=== PATIENT | male | born 1970 | race Caucasian/White ===

== ENCOUNTER 2021-05-30 16:14 | Inpatient (IN) | payer MEDICAID, OTHER ==
[~2021-05-30] VITALS: Ht 167.6 cm; Wt 77.5 kg
[2021-05-30] MEDS ORDERED: IBUP-2070 PO (18:36)
[2021-05-30] MEDS ORDERED: BUPR75 PO (18:36)
[2021-05-30] MEDS ORDERED: SUCR1TAB28 PO (18:37)
[2021-05-30] MEDS ORDERED: NAPR-1025 PO (18:37)
[2021-05-30] MEDS ORDERED: NYST100033 PO (18:37)
[2021-05-30] MEDS ORDERED: BACL10TA PO (18:37)
[2021-05-30] MEDS ORDERED: HYD50 PO (18:37)
[2021-05-30] MEDS ORDERED: LIB25 PO (18:37)
[2021-05-30] MEDS ORDERED: OLAN10TA74 PO (18:37)
[2021-05-30] MEDS ORDERED: FAMO20 PO (18:37)
[2021-05-30 19:30] LABS: BASOPHILS % (AUTO) 0.5 % (0.0-2.0); EOSINOPHILS % (AUTO) 0.6 % (1.0-6.0); HEMATOCRIT 35.2 % (41-53); HEMOGLOBIN 12.3 g/dL (13.5-17.5); LYMPHOCYTES # (AUTO) 0.8 K/uL (1.0-4.8); LYMPHOCYTES % (AUTO) 12.9 % (22.0-44.0); MEAN CORPUSCULAR HEMOGLOBIN 36.1 pg (26.0-34.0); MEAN CORPUSCULAR HGB CONC 34.9 G/dL (31.0-37.0); MEAN CORPUSCULAR VOLUME 103 fL (80-100); MONOCYTES # (AUTO) 0.4 K/uL (0.1-1.0); MONOCYTES % (AUTO) 6.7 % (2.0-9.0); NEUTROPHILS # (AUTO) 4.7 K/uL (1.8-7.7); NEUTROPHILS % (AUTO) 79.3 % (40.0-70.0); PLATELET COUNT (AUTO) 122 K/uL (150-450); RED BLOOD CELL COUNT(AUTO) 3.41 MIL/uL (4.50-5.90); RED CELL DISTRIBUTION WIDTH 18.9 % (11.5-14.5)
[2021-05-30 19:31] LABS: COVID AG,FIA SOURCE NASOPHARYNGEAL
[2021-05-30 19:43] LABS: ANION GAP 14 mmol/L (8-16); CALCIUM, TOTAL 9.4 mg/dL (8.8-10.5); CARBON DIOXIDE 27 mmol/L (22-29); CHLORIDE 97 mmol/L (98-107); CREATININE 0.84 mg/dL (0.60-1.30); GLOMERULAR FILTR. RATE CALC > 60 mL/min (>60); GLUCOSE,RANDOM 107 mg/dL (70-110); POTASSIUM 3.9 mmol/L (3.5-5.1); SODIUM SERUM 138 mmol/L (136-145); UREA NITROGEN, BLOOD 9 mg/dL (7-18)
[2021-05-30 19:45] LABS: ALANINE AMINOTRANSFERASE 177 U/L (12-78); ALBUMIN 4.1 g/dL (3.4-5.0); ALKALINE PHOSPHATASE 130 U/L (46-116); ASPARTATE AMINOTRANSFERASE 211 U/L (15-37); BILIRUBIN,TOTAL 0.9 mg/dL (0.1-1.0); TOTAL PROTEIN, SERUM 7.6 g/dL (6.4-8.2)
[2021-05-30] MEDS ORDERED: LORazepam 2 MG TABLET PO ONE (21:00)
[2021-05-31] MEDS: LORazepam 1 MG TABLET PO PRN ×4 (00:34→21:01)
[2021-05-31] MEDS ORDERED: LORazepam 2 MG TABLET PO ONE (01:15)
[2021-05-31 02:35] VITALS: BP 115/68
[2021-05-31] MEDS ORDERED: INFLUENZA VIRUS VACCINE QVS 2021-22 (6MO+)/PF 60 MCG/0.5 ML SYRINGE IM. ONE (04:45)
[2021-05-31 07:36] LABS: CHOL/HDL RATIO 2.1 (4.2-7.3)
[2021-05-31 08:00] VITALS: BP 154/111
[2021-05-31] MEDS ORDERED: GuaiFENesin/D-METHORPHAN [SUGAR-FREE] 200-20MG/10 ML SYRUP UDCUP PO PRN (08:00)
[2021-05-31] MEDS ORDERED: LOPERAMIDE HCL 2 MG CAPSULE PO PRN (08:00)
[2021-05-31] MEDS ORDERED: IBUPROFEN 400 MG TABLET PO PRN (08:00)
[2021-05-31] MEDS ORDERED: MAG HYDROX/AL HYDROX/SIMETH ES 30 ML SUSPENSION UDCUP PO PRN (08:00)
[2021-05-31] MEDS ORDERED: DOCUSATE SODIUM 100 MG CAPSULE PO PRN (08:00)
[2021-05-31] MEDS ORDERED: PETROLATUM,WHITE 28 GM JELLY TP PRN (08:00)
[2021-05-31] MEDS ORDERED: ONDANSETRON HCL 4 MG TABLET PO PRN (08:00)
[2021-05-31] MEDS ORDERED: CloNIDine HCL 0.1 MG TABLET PO PRN (08:00)
[2021-05-31] MEDS ORDERED: ALBUTEROL SULFATE HFA 90 MCG/PUFF 8 GM INHALER IH PRN (08:00)
[2021-05-31] MEDS ORDERED: ACETAMINOPHEN 325 MG TABLET PO PRN (08:00)
[2021-05-31] MEDS ORDERED: MAGNESIUM HYDROXIDE SUSPENSION 30 ML UDCUP PO PRN (08:00)
[2021-05-31 09:38] LABS: APPEARANCE,URINE CLEAR (CLEAR); GLUCOSE, URINE (UA) 100 mg/dL (NEGATIVE); KETONES,URINE 40 mg/dL (NEGATIVE); LEUKOCYTE ESTERASE ,URINE SMALL (NEGATIVE); NITRATE,URINE POSITIVE (NEGATIVE); OCCULT BLOOD,URINE NEGATIVE (NEGATIVE); PH,URINE 7.5 (5.0-8.0); PROTEIN,URINE POS 1+ (NEGATIVE)
[2021-05-31 09:46] LABS: AMPHET/METH SCREEN,URINE NEGATIVE (NEGATIVE); BARBITURATE SCREEN, URINE NEGATIVE (NEGATIVE); BENZODIAZEPINES SCREEN,URINE NEGATIVE (NEGATIVE); BILIRUBIN,URINE PRELIM. POSITIVE (NEGATIVE); CANNABINOID SCREEN,URINE NEGATIVE (NEGATIVE); COCAINE SCREEN,URINE NEGATIVE (NEGATIVE); METHADONE SCREEN, URINE NEGATIVE (NEGATIVE); OPIATE SCREEN,URINE NEGATIVE (NEGATIVE); PHENCYCLIDINE SCREEN,URINE NEGATIVE (NEGATIVE)
[2021-05-31 09:47] LABS: RBC,URINE None Seen /HPF (0-2)
[2021-05-31 09:48] LABS: BACTERIA,URINE Moderate /HPF (None Seen); SQUAMOUS EPITHELIAL CELL,UR Moderate /LPF (None Seen)
[2021-05-31] MEDS: HALOPERIDOL 5 MG TABLET PO PRN (09:49)
[2021-05-31] MEDS: BuPROPion HCL XL 150 MG ER TABLET PO SCH (09:49)
[2021-05-31] MEDS: SUCRALFATE 1 GM TABLET PO SCH ×3 (11:59→20:25)
[2021-05-31] MEDS ORDERED: CHOL500013 PO (13:17)
[2021-05-31] MEDS: NICOTINE 14 MG/24 HOUR PATCH TD PRN (15:35)
[2021-05-31 16:30] VITALS: BP 115/75
[2021-05-31] MEDS: OLANZapine 10 MG TABLET PO SCH (20:25)
[2021-06-01] MEDS: BuPROPion HCL XL 150 MG ER TABLET PO SCH (08:16)
[2021-06-01] MEDS: MULTIVITAMINS WITH MINERALS, THERAPEUTIC TABLET PO SCH (08:16)
[2021-06-01] MEDS: NICOTINE 14 MG/24 HOUR PATCH TD PRN (08:16)
[2021-06-01] MEDS: SUCRALFATE 1 GM TABLET PO SCH ×4 (08:16→20:27)
[2021-06-01] MEDS: FOLIC ACID 1 MG TABLET PO SCH (08:16)
[2021-06-01] MEDS: THIAMINE 100 MG TABLET PO SCH (08:17)
[2021-06-01] MEDS: CYANOCOBALAMIN 100 MCG TABLET PO SCH (08:17)
[2021-06-01] MEDS: BACLOFEN 10 MG TABLET PO PRN (08:17)
[2021-06-01 09:26] VITALS: BP 130/96
[2021-06-01] MEDS: HALOPERIDOL 5 MG TABLET PO PRN (12:08)
[2021-06-01] MEDS: LORazepam 1 MG TABLET PO PRN (12:08)
[2021-06-01] MEDS: LORazepam 2 MG TABLET PO PRN ×2 (14:52→21:00)
[2021-06-01 16:30] VITALS: BP 132/95
[2021-06-01] MEDS: CIPROFLOXACIN HCL 500 MG TABLET PO SCH (20:27)
[2021-06-01] MEDS: OLANZapine 10 MG TABLET PO SCH (20:28)
[2021-06-01] MEDS: ZOLPIDEM TARTRATE 10 MG TABLET PO PRN (21:45)
[2021-06-02] MEDS: BACLOFEN 10 MG TABLET PO PRN (07:32)
[2021-06-02] MEDS: FOLIC ACID 1 MG TABLET PO SCH (07:32)
[2021-06-02] MEDS: BuPROPion HCL XL 150 MG ER TABLET PO SCH (07:32)
[2021-06-02] MEDS: LORazepam 2 MG TABLET PO PRN (07:33)
[2021-06-02] MEDS: SUCRALFATE 1 GM TABLET PO SCH ×4 (07:33→20:24)
[2021-06-02] MEDS: HALOPERIDOL 5 MG TABLET PO PRN (07:33)
[2021-06-02] MEDS: MULTIVITAMINS WITH MINERALS, THERAPEUTIC TABLET PO SCH (07:33)
[2021-06-02] MEDS: THIAMINE 100 MG TABLET PO SCH (07:33)
[2021-06-02] MEDS: CYANOCOBALAMIN 100 MCG TABLET PO SCH (07:34)
[2021-06-02] MEDS: CIPROFLOXACIN HCL 500 MG TABLET PO SCH ×2 (07:34→17:20)
[2021-06-02 11:30] VITALS: BP 123/78
[2021-06-02 16:00] VITALS: BP 141/83
[2021-06-02] MEDS: OLANZapine 10 MG TABLET PO SCH (20:27)
[2021-06-03] MEDS: SUCRALFATE 1 GM TABLET PO SCH ×4 (08:32→20:27)
[2021-06-03] MEDS: CIPROFLOXACIN HCL 500 MG TABLET PO SCH ×2 (08:32→16:50)
[2021-06-03] MEDS: CYANOCOBALAMIN 100 MCG TABLET PO SCH (08:32)
[2021-06-03] MEDS: MULTIVITAMINS WITH MINERALS, THERAPEUTIC TABLET PO SCH (08:35)
[2021-06-03] MEDS: BuPROPion HCL XL 150 MG ER TABLET PO SCH (08:35)
[2021-06-03] MEDS: FOLIC ACID 1 MG TABLET PO SCH (08:35)
[2021-06-03] MEDS: THIAMINE 100 MG TABLET PO SCH (08:35)
[2021-06-03 11:00] VITALS: BP 130/88
[2021-06-03 16:07] VITALS: BP 119/75
[2021-06-03] MEDS: OLANZapine 10 MG TABLET PO SCH (20:27)
[2021-06-03] MEDS: ZOLPIDEM TARTRATE 10 MG TABLET PO PRN (21:13)
[2021-06-04] MEDS: THIAMINE 100 MG TABLET PO SCH (08:13)
[2021-06-04] MEDS: CIPROFLOXACIN HCL 500 MG TABLET PO SCH ×2 (08:13→16:45)
[2021-06-04] MEDS: FOLIC ACID 1 MG TABLET PO SCH (08:13)
[2021-06-04] MEDS: CYANOCOBALAMIN 100 MCG TABLET PO SCH (08:13)
[2021-06-04] MEDS: SUCRALFATE 1 GM TABLET PO SCH ×4 (08:14→20:16)
[2021-06-04] MEDS: BuPROPion HCL XL 150 MG ER TABLET PO SCH (08:14)
[2021-06-04] MEDS: MULTIVITAMINS WITH MINERALS, THERAPEUTIC TABLET PO SCH (08:14)
[2021-06-04 08:32] VITALS: BP 112/74
[2021-06-04 16:45] VITALS: BP 116/77
[2021-06-04] MEDS: OLANZapine 10 MG TABLET PO SCH (20:16)
[2021-06-04] MEDS: ZOLPIDEM TARTRATE 10 MG TABLET PO PRN (20:16)
[2021-06-04 22:53] VITALS: BP 153/99
[2021-06-04] MEDS: LORazepam 2 MG TABLET PO PRN (22:54)
[2021-06-05] MEDS: SUCRALFATE 1 GM TABLET PO SCH ×2 (07:54→12:55)
[2021-06-05] MEDS: FOLIC ACID 1 MG TABLET PO SCH (07:55)
[2021-06-05] MEDS: BACLOFEN 10 MG TABLET PO PRN (07:55)
[2021-06-05] MEDS: LORazepam 2 MG TABLET PO PRN (07:55)
[2021-06-05] MEDS: BuPROPion HCL XL 150 MG ER TABLET PO SCH (07:55)
[2021-06-05] MEDS: CIPROFLOXACIN HCL 500 MG TABLET PO SCH (07:55)
[2021-06-05] MEDS: MULTIVITAMINS WITH MINERALS, THERAPEUTIC TABLET PO SCH (07:55)
[2021-06-05] MEDS: CYANOCOBALAMIN 100 MCG TABLET PO SCH (07:55)
[2021-06-05] MEDS: THIAMINE 100 MG TABLET PO SCH (07:55)
[2021-06-05 08:13] VITALS: BP 140/84
[2021-06-05] MEDS ORDERED: BUPR-93 PO (09:57)
[2021-06-05] MEDS ORDERED: CIPR-278 PO (10:12)
== END 2021-06-05 13:00 | disposition home or self-care (01) | DRG 751 ==
LOC: EMS 16:14 → 3EC 21:35
DX: F33.2 Major depressive disorder, recurrent severe without psychotic features (principal); D69.6 Thrombocytopenia, unspecified; R45.851 Suicidal ideations; F25.9 Schizoaffective disorder, unspecified; F10.20 Alcohol dependence, uncomplicated; F17.200 Nicotine dependence, unspecified, uncomplicated; D64.9 Anemia, unspecified; Z20.822 Contact with and (suspected) exposure to COVID-19; F41.1 Generalized anxiety disorder; G35 Multiple sclerosis; Z59.00 Homelessness unspecified; Z79.899 Other long term (current) drug therapy; Z91.19 Patient's noncompliance with other medical treatment and regimen; Z88.0 Allergy status to penicillin
CPT/HCPCS: 80053; 80061; 80307; 81001; 85025; 87077; 87081; 87086; 87186; 99285; G0480

== ENCOUNTER 2021-06-20 18:18 | Emergency (ER) | payer MEDICAID, OTHER ==
[~2021-06-20] VITALS: Ht 167.6 cm; Wt 82.0 kg
[~2021-06-20 18:18] MED LIST: BUPR-93 PO; CIPR-278 PO; OLAN10TA74 PO; SUCR1TAB28 PO
[2021-06-20 19:15] VITALS: BP 139/84
[2021-06-28] MEDS ORDERED: CHOL500013 PO (13:56)
[2021-06-28] MEDS ORDERED: FAMO20 PO (13:56)
[2021-07-06] MEDS ORDERED: LOPE2 PO (14:06)
== END 2021-06-20 20:12 | disposition home or self-care (01) ==
LOC: EMS 18:24
DX: S61.210A Laceration without foreign body of right index finger without damage to nail, initial encounter (principal); F32.9 Major depressive disorder, single episode, unspecified; F17.210 Nicotine dependence, cigarettes, uncomplicated; Z88.0 Allergy status to penicillin; W19.XXXA Unspecified fall, initial encounter; Y93.89 Activity, other specified; Y92.89 Other specified places as the place of occurrence of the external cause; Y99.8 Other external cause status
CPT/HCPCS: 12001; 99283

== ENCOUNTER 2023-12-22 21:49 | Emergency (ER) | payer OTHER ==
[~2023-12-22] VITALS: Ht 170.2 cm; Wt 77.3 kg
[~2023-12-22 21:49] MED LIST changes: +BUPR-50 PO; -BUPR-93 PO; +CHOL500013 PO; -CIPR-278 PO; +FAMO20 PO; +LOPE-232 PO
[2023-12-22 22:02] VITALS: BP 142/88; PULSE 88; RESP 16; TEMP 97.9
[2023-12-22] MEDS: TraMADol HCL 50 MG TABLET PO ONE (23:43)
[2023-12-22] MEDS: PERTUSS(ACELL),DIPH,TET/PF 0.5 ML SYRINGE [ADULT] IM. ONE (23:44)
[2023-12-22] MEDS ORDERED: BACTDSB PO (23:53)
== END 2023-12-23 00:40 | disposition home or self-care (01) ==
LOC: EMS 21:54
DX: S61.452A Open bite of left hand, initial encounter (principal); F10.20 Alcohol dependence, uncomplicated; F32.A Depression, unspecified; F17.210 Nicotine dependence, cigarettes, uncomplicated; Z88.0 Allergy status to penicillin; W54.0XXA Bitten by dog, initial encounter; Y93.89 Activity, other specified; Y92.89 Other specified places as the place of occurrence of the external cause; Y99.8 Other external cause status
CPT/HCPCS: 90471; 90715; 99283